=== PATIENT | male | born 2000 | race Two or more races ===

== ENCOUNTER 2020-08-17 21:30 | Emergency (ER) | payer BC, OTHER ==
[~2020-08-17] VITALS: Ht 162.6 cm; Wt 61.2 kg
[2020-08-17] MEDS ORDERED: cefTRIAXone SOD 1,000 MG VL IM ONE (23:30)
[2020-08-17] MEDS ORDERED: TETANUS-DIPTH-ACEL PERTUSSIS 0.5ML SYR Tdap IM ONE (23:30)
[2020-08-17] MEDS ORDERED: CIPROFLOXACIN HCL 500 MG TAB PO ONE (23:30)
[2020-08-18 00:11] VITALS: BP 120/80
== END 2020-08-18 00:33 | disposition home or self-care (01) ==
LOC: ER 21:30
DX: S91.331A Puncture wound without foreign body, right foot, initial encounter (principal); X58.XXXA Exposure to other specified factors, initial encounter; Y93.89 Activity, other specified; Y92.89 Other specified places as the place of occurrence of the external cause; Y99.8 Other external cause status
CPT/HCPCS: 73630; 90471; 90715; 96372; 99284; J0696

== ENCOUNTER 2023-12-08 18:59 | Emergency (ER) | payer BC, OTHER ==
[~2023-12-08] VITALS: Ht 162.6 cm; Wt 72.6 kg
[2023-12-08 19:37] VITALS: BP 139/82; PULSE 73; RESP 18; TEMP 97.6; O2SAT 97
[2023-12-08] MEDS ORDERED: SILV1CRE82 TOP (22:32)
== END 2023-12-08 23:13 | disposition home or self-care (01) ==
LOC: ER 18:59
DX: T23.242A Burn of second degree of multiple left fingers (nail), including thumb, initial encounter (principal); T23.241A Burn of second degree of multiple right fingers (nail), including thumb, initial encounter; X12.XXXA Contact with other hot fluids, initial encounter; Y93.89 Activity, other specified; Y92.69 Other specified industrial and construction area as the place of occurrence of the external cause; Y99.8 Other external cause status
CPT/HCPCS: 16020

== ENCOUNTER 2025-03-18 11:10 | Emergency (ER) | payer BC, MEDICAID ==
[~2025-03-18] VITALS: Ht 160 cm; Wt 69.6 kg
[~2025-03-18 11:10] MED LIST: SILV1CRE82 TOP
--- NOTE | 2025-03-18 12:15 | ED.PDOC ---
SOB-HPI HPI Comments 24-year-old male that presents to the ED for chief complaint of flu-like s ymptoms. The patient states that since last five days prior patient has been having dizziness, chills body aches and diffuse abdominal pain. Patient states he has been unable to keep anything down since. The patient states he did have bowel movement earlier this morning. Patient states he ate out last at restaurant and states he has been having symptoms since. The patient otherwise has stable vitals in the ED. The patient denies any other symptoms. Chief Complaint: Flu like Time Seen by MD: 12:08 Primary Care Provider: QUENTIN Aguirre notes: Medications, Allergies Information Source: Patient Mode of Arrival: Ambulatory Brought in by: self Past Medical History PAST MEDICAL HISTORY: Denies Surgical History: Denies all surgeries Family History Family History: Unknown Social History Smoker: Non-Smoker Alcohol: Denies ETOH Use Drugs: Denies Drug Use Lives In: Home Constitutional: reports: chills, weakness, others (body aches, ); denies: diap horesis, fatigue, fever, malaise, sweats EENTM: denies: blurred vision, double vision, ear bleeding, ear discharge, ear drainage, ear pain, ear ringing, eye pain, eye redness, hearing loss, mouth pain, mouth swelling, nasal discharge, nose bleeding, nose congestion, nose pain, photophobia, tearing, throat pain, throat swelling, voice changes, others Respiratory: denies: cough, hemoptysis, orthopnea, SOB at rest, shortness of breath, SOB with excertion, stridor, wheezing, others Cardiovascular: denies: chest pain, dizzy spells, diaphoresis, Dyspnea on exertion, edema, irregular heart beat, left arm pain, lightheadedness, palpitations, PND, syncope, others Gastrointestinal: denies: abdomen distended, abdominal pain, blood streaked bowels, constipated, diarrhea, dysphagia, difficulty swallowing, hematemesis, melena, nausea, poor appetite, poor fluid intake, rectal bleeding, rectal pain, vomiting, others Genitourinary: denies: burning, dysuria, flank pain, frequency, hematuria, incontinence, penile discharge, penile sore, pain, testicle pain, testicle swelling, urgency, others Neurological: reports: dizziness; denies: fainting, headache, left sided numbness, left sided weakness, numbness, paresthesia, pre-existing deficit, right sided numbness, right sided weakness, seizure, speech problems, tingling, tremors, weakness, others Musculoskeletal: denies: back pain, gout, joint pain, joint swelling, muscle pain, muscle stiffness, neck pain, others Integumetry: denies: bruises, change in color, change in hair/nails, dryness, laceration, lesions, lumps, rash, wounds, others Allergic/Immunocompromised: denies: Difficulty Healing, Frequent Infections, Hives, Itching, others Hematologic/Lymphatic: denies: anemia, blood clots, easy bleeding, easy bruising, swollen glands, others Endocrine: denies: excessive hunger, excessive sweating, excessive thirst, excessive urination, flushing, intolerance to cold, intolerance to heat, unexplained weight gain, unexplained weight loss, others Psychiatric: denies: anxiety, bipolar disorder, depression, hopeless, panic disorder, schizophrenia, sleepless, suicidal, others All Other Systems: Reviewed and Negative Physical Exam General Appearance: No Apparent Distress, Normal HEENT: Normal ENT Inspection, Pharynx Normal, TMs Normal Neck: Full Range of Motion, Non-Tender, Normal, Normal Inspection Respiratory: Chest Non-Tender, Lungs Clear, No Accessory Muscle Use, No Respiratory Distress, Normal Breath Sounds Cardiovascular: No Edema, No JVD, No Murmur, No Gallop, Normal Peripheral Pulses, Regular Rate/Rhythm Breast Exam: Deferred Gastrointestinal: No Organomegaly, Non Tender, No Pulsatile Mass, Normal Bowel Sounds, Soft Genitalia: Deferred Pelvic: Deferred Rectal: Deferred Extremities: No calf tenderness, Normal capillary refill, Normal inspection, Normal range of motion, Non-tender, No pedal edema Musculoskeletal : Apperance: Normal Neurologic: Alert, clinical training coordinator II-XII nml as Tested, No Motor Deficits, Normal Affect, Normal Mood, No Sensory Deficits Cerebellar Function: Normal Reflexes: Normal Skin: Dry, Normal Color, Warm Lymphatic: No Adenopathy Was a procedure done? Was a procedure done?: No Differential Dx Differential Diagnosis: Bronchitis, Pneumothorax, Respiratory Distress, URI Comments influenza a and b, gastroenteritis, X-Ray, Labs, Meds, VS Vital Signs Date Time Temp Pulse Resp B/P (MAP) Pulse Ox O2 Delivery O2 Flow Rate FiO2 03/18/25 11:20 98.7 74 18 127/58 98 98.7 Lab Test 03/18/25 12:38 03/18/25 12:03 Range/Units Urine Color Yellow Yellow Urine Clarity Clear Clear Urine pH 6.0 5.0-9.0 Urine Specific [place] 1.031 1.001-1.035 Urine Protein 1+ H Negative Urine Ketones 2+ H Negative Urine Blood Negative Negative /uL Urine Nitrite Negative Negative Urine Bilirubin Negative Negative Urine Urobilinogen Normal Negative mg/dL Urine Leukocyte Esterase 1+ Negative /uL Urine RBC 4 0 - 3 /hpf Urine Microscopic WBC 14 H 0-3 /HPF Urine Squamous Epithelial Cells None seen <5 /hpf Urine Bacteria None seen None Seen /hpf Urine Mucus Few None Seen Urine Glucose Normal Normal mg/dL Urine Opiates Screen Neg NEGATIVE Urine Fentanyl Screen Neg NEGATIVE Urine Barbiturates Screen Neg NEGATIVE Urine Phencyclidine Screen Neg NEGATIVE Urine Amphetamines Screen Neg NEGATIVE Urine Benzodiazepines Screen Neg NEGATIVE Urine Cocaine Screen Neg NEGATIVE Urine Cannabinoids Screen Pos NEGATIVE SARS-CoV-2 Antigen (Rapid) Negative NEGATIVE White Blood Count 6.9 4.4-10.8 10^3/uL Red Blood Count 5.12 4.5-5.90 10^6/uL Hemoglobin 17.4 13.5-17.5 g/dL Hematocrit 49.4 41.0-53.0 % Mean Corpuscular Volume 96.5 80.0-100.0 fL Mean Corpuscular Hemoglobin 33.9 H 28.0-32.0 pg Mean Corpuscular Hemoglobin Concent 35.1 32.0-36.0 g/dL Red Cell Distribution Width 13.8 11.8-14.3 % Platelet Count 205 140-450 10^3/uL Mean Platelet Volume 8.3 6.9-10.8 fL Neutrophils (%) (Auto) 68.6 37.0-80.0 % Lymphocytes (%) (Auto) 13.1 10.0-50.0 % Monocytes (%) (Auto) 18.0 H 0.0-12.0 % Eosinophils (%) (Auto) 0.0 0.0-7.0 % Basophils (%) (Auto) 0.3 0.0-2.0 % Neutrophils # (Auto) 4.7 1.6-8.6 10 ^3/uL Lymphocytes # (Auto) 0.9 0.4-5.4 10 ^3/uL Monocytes # (Auto) 1.2 0-1.3 10 ^3/uL Eosinophils # (Auto) 0 0-0.8 10 ^3/uL Basophils # (Auto) 0 0-0.2 10 ^3/uL Nucleated Red Blood Cells 0.0 % Sodium Level 141 136-145 mmol/L Potassium Level 3.6 3.5-5.1 mmol/L Chloride Level 103 98-107 mmol/L Carbon Dioxide Level 24 20-31 mmol/L Anion Gap 14 5-15 Blood Urea Nitrogen 8 L 9-23 mg/dL Creatinine 1.16 0.700-1.30 mg/dL Glomerular Filtration Rate Calc 89 >90 mL/min BUN/Creatinine Ratio 6.9 L 10.0-20.0 Serum Glucose 102 74-106 mg/dL Calcium Level 9.8 8.7-10.4 mg/dL Lipase 48 12-53 U/L Current Medications Medications (Trade) Dose Ordered Sig/Cristofer Route Start Time Stop Time Status Last Admin Sodium Chloride 500 ml @ 1,000 mls/hr Q30M ONCE IV 03/18/25 12:00 03/18/25 12:29 DC 03/18/25 12:26 Ondansetron HCl (Zofran Po) 4 mg PRN ONCE PO 03/18/25 12:00 03/18/25 12:01 DC 03/18/25 12:25 X-Ray, Labs, Meds, VS Comment Patient arrives alert and oriented, ABC's intact, afebrile, vital signs stable, saturating well in room air Peripheral IV insertion+ labs were ordered. CBC was ordered to exclude anemia, blood loss, or infection. BMP was ordered to exclude electrolyte abnormalities, renal failure, dehydration, hyperglycemia Urinalysis was ordered to rule out UTI or hematuria. Lipase, urine drug screen, COVID-19 test, Diagnostic imaging ordered by me and results interpreted by radiology : Labs in the ED showed (pertinent+ and then pertinent-) Patient was given: IV fluids, Zofran. Tolerated medications with no adverse reaction. Additional MDM Review of External, Non-ED records: External records reviewed. Discussion with independent historian (EMS, family) history obtained from the patient/parents (if applicable) at bedside Chronic conditions affecting care: None Social determinants of health affecting care: None Consideration of admission (observation or admission): I considered escalation of care to admission for this patient, however given the reassuring workup, the patient is safe for outpatient management. Discussion with the Radiology: No Tests considered but not performed: Prescription medication considered but not given: 12 lead EKG interpretation: Time of 1ST Reevaluation: 12:40 Reevaluation 1ST: Unchanged Patient Education/Counseling: Diagnosis, Treatment Family Education/Counseling: No Family Present SEPSIS Sepsis Screen Date sepsis recognized/suspect: Mar 18, 2025 Time Sepsis recognized/suspect: 1120 Recent Procedure: No On Antibiotic Therapy: No Respiratory Rate >20: No Heart Rate >90: No Temp<36 C (96.8 F) or >38.3 C: No SBP <90 or MAP <65 mmHG: No New Acute Mental Status Change: No Is the patient on CPAP, BIPAP,: No Physician Orders Heplock Iv (03/18/25 11:52) Vital Signs Date Time Temp Pulse Resp B/P (MAP) Pulse Ox O2 Delivery O2 Flow Rate FiO2 03/18/25 11:20 98.7 74 18 127/58 98 98.7 Laboratory Tests Test 03/18/25 12:03 White Blood Count 6.9 10^3/uL (4.4-10.8) Medications Medications Dose Ordered Sig/Cristofer Route Start Time Stop Time Status Last Admin Dose Admin Ondansetron HCl 4 mg PRN ONCE PO 03/18/25 12:00 03/18/25 12:01 DC 03/18/25 12:25 Sodium Chloride 500 ml @ 1,000 mls/hr Q30M ONCE IV 03/18/25 12:00 03/18/25 12:29 DC 03/18/25 12:26 Departure 1 Departure Time of Disposition: 16:47 Impression: Primary Impression: Cystitis Additional Impression: Nausea & vomiting Disposition: 01 HOME / SELF CARE / HOMELESS Condition: Stable e-Prescriptions Ondansetron HCl (Ondansetron) 4 Mg Tab 4 MG PO Q8HP PRN for 1 Day, #3 TAB 0 Refills Prov: JUAN F SABILLON TERMIN[employer] UP OPERATOR 03/18/25 Nitrofurantoin Monohydrate Mac (Macrobid) 100 Mg Cap 100 MG PO BID for 7 Days, #14 CAP 0 Refills Prov: JUAN F SABILLON [employer] UP OPERATOR 03/18/25 Critical Care Note Critical Care Time?: No Stability Stability form required: No Heart Score Heart Score: Heart Score Response (Comments) Value History N/A 0 EKG N/A 0 Age N/A 0 Risk Factors N/A 0 Troponin N/A 0 Total 0 I personally scribed for JUAN F SABILLON NP ([email or web address]) on 03/18/25 at 12:15. Electronically submitted by Rhianna Hauser ([facility] [place] JUAN F SABILLON NP Mar 18, 2025 12:15
[2025-03-18] MEDS: ONDANSETRON ODT 4 MG TAB PO ONE (12:25)
[2025-03-18] MEDS: SODIUM CHLORIDE 0.9% 500 ML IV ONE (12:26)
[2025-03-18 12:36] LABS: Hematocrit 49.4 % (41.0-53.0); Hemoglobin 17.4 g/dL (13.5-17.5); Mean Corpuscular Hemoglobin 33.9 pg (28.0-32.0); Mean Corpuscular Volume 96.5 fL (80.0-100.0); Nucleated Red Blood Cells % 0.0 %
[2025-03-18 12:43] LABS: Chloride 103 mmol/L (98-107); Potassium 3.6 mmol/L (3.5-5.1); Sodium 141 mmol/L (136-145)
[2025-03-18 12:44] LABS: Anion Gap 14 (5-15); Carbon Dioxide 24 mmol/L (20-31)
[2025-03-18 12:45] LABS: Calcium 9.8 mg/dL (8.7-10.4)
[2025-03-18 12:49] LABS: Glucose 102 mg/dL (74-106)
[2025-03-18 12:50] LABS: BUN/Creatinine Ratio 6.9 (10.0-20.0); Lipase 48 U/L (12-53)
[2025-03-18 12:51] LABS: Blood Urea Nitrogen 8 mg/dL (9-23)
[2025-03-18 14:08] LABS: Urine Protein, UAD 1+ (Negative)
[2025-03-18 14:33] LABS: COVID19 ANTIGEN SOFIA FIA NEGATIVE (NEGATIVE)
[2025-03-18 16:37] LABS: Amphetamine Screen, Urine Neg (NEGATIVE); Barbiturate Scree,Urine Neg (NEGATIVE); Benzodiazephine Screen, Urine Neg (NEGATIVE); Cannabinoid Screen, Urine Pos (NEGATIVE); Cocaine Screen, Urine Neg (NEGATIVE); Opiate Scree,Urine Neg (NEGATIVE); Phencyclidine Screen, Urine Neg (NEGATIVE)
[2025-03-18] MEDS ORDERED: ONDA-155 PO (16:49)
[2025-03-18] MEDS ORDERED: NITR-87 PO (16:49)
[2025-03-18 16:51] VITALS: BP 122/62; PULSE 78; RESP 16; TEMP 98.7; O2SAT 96
== END 2025-03-18 16:53 | disposition home or self-care (01) ==
LOC: ER 11:10
DX: N30.90 Cystitis, unspecified without hematuria (principal); R11.2 Nausea with vomiting, unspecified; Z79.899 Other long term (current) drug therapy; Z20.822 Contact with and (suspected) exposure to COVID-19
CPT/HCPCS: 36415; 80048; 80307; 81001; 83690; 85025; 87426; 96360; 99283; J7040; Q0162